=== PATIENT | female | born 1990 | race Two or more races ===

== ENCOUNTER 2016-06-14 04:19 | Emergency (ER) | payer MEDICAID ==
[~2016-06-14] VITALS: Ht 154.9 cm; Wt 61.2 kg
[2016-06-14] MEDS ORDERED: ONDANSETRON HCL 4 MG/2 ML VIAL IV ONE (04:45)
[2016-06-14] MEDS ORDERED: MORPHINE SULF INJ 2 MG/ML SYRINGE 1ML IV ONE (04:45)
[2016-06-14 05:07] LABS: Basophils # (auto) 0 uL; Basophils % (auto) 0.3 % (0.0-2.0); DEFINITIVE VIEW TRANSMISSION; Eosinophils # (auto) 0 uL; Eosinophils % (auto) 0.1 % (0.0-7.0); Hematocrit 38.2 % (36.0-46.0); Lymphocytes # (auto) 1.5 uL; Lymphocytes % (auto) 10.6 % (10.0-50.0); Mean Corpuscular Hemoglobin 24.9 pg (28.0-32.0); Mean Corpuscular Hgb Conc. 31.5 g/dL (32.0-36.0); Mean Corpuscular Volume 79.1 fL (80.0-100.0); Mean Platelet Volume 7.7 fL (7.4-10.4); Monocytes # (auto) 0.8 uL; Monocytes % (auto) 5.6 % (0.0-12.0); Neutrophils # (auto) 11.8 uL; Neutrophils % (auto) 83.4 % (37.0-80.0); Platelet Count (auto) 422 10^3/uL (140-450); White Blood Cell 14.1 10^3/uL (4.4-10.8)
[2016-06-14] MEDS ORDERED: SODIUM CHLORIDE 0.9% 1,000 ML IV ONE (05:15)
[2016-06-14] MEDS ORDERED: TETANUS-DIPTH-ACEL PERTUSSIS 0.5ML SYRG IM ONE (05:30)
[2016-06-14 05:35] LABS: Albumin 4.2 g/dL (3.4-5.0); BUN/Creatinine Ratio 13.6; Calcium 8.4 mg/dL (8.5-10.1); Potassium 3.8 mmol/L (3.5-5.1)
[2016-06-14 05:38] LABS: Bilirubin, Total 0.2 mg/dL (0.2-1.0); Total Protein 8.6 g/dL (6.4-8.2)
[2016-06-14 07:01] VITALS: BP 99/55
== END 2016-06-14 06:54 | disposition home or self-care (01) ==
LOC: ER 04:22
DX: S83.91XA Sprain of unspecified site of right knee, initial encounter (principal); S00.83XA Contusion of other part of head, initial encounter; S60.221A Contusion of right hand, initial encounter; S70.01XA Contusion of right hip, initial encounter; S70.211A Abrasion, right hip, initial encounter; S60.511A Abrasion of right hand, initial encounter; S80.211A Abrasion, right knee, initial encounter; Y04.0XXA Assault by unarmed brawl or fight, initial encounter; Y93.89 Activity, other specified; Y99.8 Other external cause status; Y92.89 Other specified places as the place of occurrence of the external cause
CPT/HCPCS: 36415; 70450; 70486; 72125; 73130; 73502; 73560; 73630; 74176; 80053; 80320; 84702; 85025; 90471; 90715; 96361; 96374; 96375; 99285; J2270; J2405; J7030

== ENCOUNTER → 2016-09-30 | Emergency (ER) | payer MEDICAID | END | disposition left against medical advice (07) | LOC: ER 03:41 | DX: R10.9 Unspecified abdominal pain (principal); Z53.21 Procedure and treatment not carried out due to patient leaving prior to being seen by health care provider ==

== ENCOUNTER 2024-06-19 23:02 | Emergency (ER) | payer MEDICAID ==
[~2024-06-19] VITALS: Ht 154.9 cm; Wt 73.1 kg
--- NOTE | 2024-06-20 00:56 | DVH ---
CT HEAD WITHOUT CONTRAST INDICATION: dizzy COMPARISON: None TECHNIQUE: CT of the head without intravenous contrast. RADIATION DOSE: CTDIvol: 52.6 mGy, DLP: 738.07 mGy*cm FINDINGS: There is no evidence of intracranial hemorrhage, infarct, extra-axial collection, mass effect, midli ne shift, herniation or hydrocephalus. The ventricles, sulci and cisterns are normal. The newberry-whit e differentiation is normal. Visualized paranasal sinuses and mastoid air cells are clear. Soft tiss ues and osseous structures are unremarkable. IMPRESSION: No abnormality demonstrated.
[2024-06-20 01:08] LABS: Chloride 105 mmol/L (98-107); Sodium 137 mmol/L (136-145)
[2024-06-20 01:09] LABS: Anion Gap 7 (5-15); Calcium 9.6 mg/dL (8.7-10.4); Carbon Dioxide 25 mmol/L (20-31)
[2024-06-20 01:14] LABS: BUN/Creatinine Ratio 19.7 (10.0-20.0); Blood Urea Nitrogen 12 mg/dL (9-23); Glucose 96 mg/dL (74-106)
[2024-06-20 01:16] LABS: Potassium 3.5 mmol/L (3.5-5.1)
--- NOTE | 2024-06-20 01:46 | ED.PDOC ---
History of Present Illness HPI Comments 34 y/o F with no significant past medical history brought in by family complaining of dizziness for the last 2-1/2 days, associated with a headache and nausea. Patient states the symptoms are worse when she changes position or moves her head. She states she had similar symptoms in the past that spontaneously resolved and she never sought medical attention. She denies any fever, vision changes, vomiting, focal weakness or syncope. Chief Complaint: Dizziness Time Seen by MD: 00:20 Primary Care Provider: JERAMIE Reviewed Notes: Nurses Notes, Medications, Allergies Allergies: Coded Allergies: NO KNOWN ALLERGIES (Unverified , 10/14/09) Information Source: Patient Mode of Arrival: Ambulatory Severity: Moderate Timing: Days Duration: Intermittent Prehospital treatment: None Past Medical History Past Medical History (Other): obesity Surgical History: Denies all surgeries IMMIGRATION INSPECTOR History: No Pertinent IMMIGRATION INSPECTOR History Family History Family History: Unknown Social History Smoker: Non-Smoker Alcohol: Occasionally Drugs: Denies Drug Use Lives In: Home All Other Systems: Reviewed and Negative (Comprehensive systems review obtained and negative except for what is stated in the HPI.) Physical Exam General Appearance: No Apparent Distress HEENT: PERRL/EOMI, Other (Moist mucous membranes. No facial asymmetry.) Neck: Full Range of Motion, Non-Tender, Normal Inspection, Supple Respiratory: Lungs Clear, No Accessory Muscle Use, No Respiratory Distress, Normal Breath Sounds Cardiovascular: No Edema, No JVD, Regular Rate/Rhythm Breast Exam: Deferred Gastrointestinal: Non Tender, Soft Genitalia: Deferred Pelvic: Deferred Rectal: Deferred Extremities: Normal inspection, Normal range of motion, Non-tender, No pedal edema Neurologic: Alert (Oriented x4), Normal Affect, Normal Mood, Other (Ambulatory without difficulty. No gross focal deficit. Head movement reproduces dizziness symptoms) Cerebellar Function: NOT DONE Reflexes: NOT DONE Skin: Dry, Normal Color, Warm Lymphatic: NOT DONE Was a procedure done? Was a procedure done?: No EKG EKG : Comments Sinus rhythm, rate 69, normal intervals, normal axis, normal QRS, no ST/T changes. Differential Dx Considerations may include: Positional vertigo, CVA, TIA, hypertensive encephalopathy, arrhythmia, CT, electrolyte imbalance, infection such as UTI, among others. X-Ray, Labs, Meds, VS Vital Signs Date Time Temp Pulse Resp B/P (MAP) Pulse Ox O2 Delivery O2 Flow Rate FiO2 06/20/24 02:42 97 19 100 Room Air* 0 21 06/20/24 02:41 97.9 98 19 139/79 (99) 97 97.9 06/20/24 01:45 69 06/19/24 23:58 69 06/19/24 23:42 98.1 80 18 166/103 (124) 99 Lab Test 06/20/24 01:30 06/20/24 00:33 06/19/24 23:48 06/19/24 23:47 Range/Units Troponin I High Sensitivity < 3 L < 3 L </=34 ng/L White Blood Count 9.1 4.4-10.8 10^3/uL Red Blood Count 4.86 4.0-5.20 10^6/uL Hemoglobin 14.1 12.2-16.2 g/dL Hematocrit 43.5 36.0-46.0 % Mean Corpuscular Volume 89.6 80.0-100.0 fL Mean Corpuscular Hemoglobin 29.1 28.0-32.0 pg Mean Corpuscular Hemoglobin Concent 32.4 32.0-36.0 g/dL Red Cell Distribution Width 13.0 11.8-14.3 % Platelet Count 393 140-450 10^3/uL Mean Platelet Volume 7.5 6.9-10.8 fL Neutrophils (%) (Auto) 54.1 37.0-80.0 % Lymphocytes (%) (Auto) 35.2 10.0-50.0 % Monocytes (%) (Auto) 8.1 0.0-12.0 % Eosinophils (%) (Auto) 2.4 0.0-7.0 % Basophils (%) (Auto) 0.2 0.0-2.0 % Neutrophils # (Auto) 4.9 1.6-8.6 10 ^3/uL Lymphocytes # (Auto) 3.2 0.4-5.4 10 ^3/uL Monocytes # (Auto) 0.7 0-1.3 10 ^3/uL Eosinophils # (Auto) 0.2 0-0.8 10 ^3/uL Basophils # (Auto) 0 0-0.2 10 ^3/uL Nucleated Red Blood Cells 0.1 % Sodium Level 137 136-145 mmol/L Potassium Level 3.5 3.5-5.1 mmol/L Chloride Level 105 98-107 mmol/L Carbon Dioxide Level 25 20-31 mmol/L Anion Gap 7 5-15 Blood Urea Nitrogen 12 9-23 mg/dL Creatinine 0.61 0.550-1.02 mg/dL Glomerular Filtration Rate Calc 119 >90 mL/min BUN/Creatinine Ratio 19.7 10.0-20.0 Serum Glucose 96 74-106 mg/dL Calcium Level 9.6 8.7-10.4 mg/dL Beta HCG, Quantitative 1.3 L 1.5-4.2 mIU/mL Urine Color Light-yellow Yellow Urine Clarity Clear Clear Urine pH 6.5 5.0-9.0 Urine Specific [place] 1.018 1.001-1.035 Urine Protein Negative Negative Urine Ketones Negative Negative Urine Blood 2+ H Negative /uL Urine Nitrite Negative Negative Urine Bilirubin Negative Negative Urine Urobilinogen Normal Negative mg/dL Urine Leukocyte Esterase Negative Negative /uL Urine RBC 2 0 - 4 /hpf Urine Microscopic WBC 2 0-5 /HPF Urine Squamous Epithelial Cells Few <5 /hpf Urine Bacteria None seen None Seen /hpf Urine Glucose Normal Normal mg/dL POC Glucose 102 70-106 mg/dl Current Medications Medications (Trade) Dose Ordered Sig/Wei Route Start Time Stop Time Status Last Admin Meclizine HCl (Antivert Tablet) 50 mg ONCE ONCE PO 06/20/24 00:30 06/20/24 00:31 DC 06/20/24 02:38 Ondansetron HCl (Zofran Po) 4 mg ONCE ONCE PO 06/20/24 00:30 06/20/24 00:31 DC 06/20/24 02:38 [place] [id number] Ph: [phone] DIAGNOSTIC IMAGING Diagnostic Imaging Report : [id number] Signed PATIENT: DARON GIBBONS ACCT: [id number] UNIT: [id number] : 1990 LOC: ER ROOM / BED: / AGE / SEX: 34 / F ADM STATUS: REG ER SERVICE 0022 ORDERING PHYSICIAN: RANDELL TEJADA MD PROCEDURE(s): HWOCT - HEAD WITHOUT CONTRAST REASON: dizzy ORDER NUMBER(s): [id number], ACCESSION NUMBER(s): [id number] CT HEAD WITHOUT CONTRAST INDICATION: dizzy COMPARISON: None TECHNIQUE: CT of the head without intravenous contrast. RADIATION DOSE: CTDIvol: 52.6 mGy, DLP: 738.07 mGy*cm FINDINGS: There is no evidence of intracranial hemorrhage, infarct, extra-axial collection, mass effect, midline shift, herniation or hydrocephalus. The ventricles, sulci and cisterns are normal. The newberry-white differentiation is normal. Visualized paranasal sinuses and mastoid air cells are clear. Soft tissues and osseous structures are unremarkable. IMPRESSION: No abnormality demonstrated. ATED BY: VIKRAM BATRES MD DICTATED DATE/TIME: 06/20/2452 SIGNED BY: VIKRAM BATRES MD SIGNED DATE/TIME: 06/20/2452 CC: X-Ray, Labs, Meds, VS Comment 34-year-old female with no significant past medical history complaining of dizziness and nausea Vitals remarkable for BP 166/103 Exam remarkable for reproducible dizziness with head movement Rhythm strip independently interpreted by me: Sinus rhythm, rate 69, no ectopy. CT head unremarkable CBC, metabolic panel, BNP, serial troponins, hCG and UA unremarkable for any abnormality of acute significance Patient treated with the following in the ED: Meclizine 50 mg p.o., Zofran ODT 4 mg p.o. On re-evaluation, symptoms have improved, vitals were stable, blood pressure has improved, and patient has no focal neurologic deficit on exam. Hospitalization was considered, however patient had rapid improvement of symptoms with treatment in the ED, and I no longer feel hospitalization is necessary. Patient now appears stable for discharge with close outpatient follow-up with her primary doctor. Rx meclizine, Zofran Time of 1ST Reevaluation: 00:50 Reevaluation 1ST: Unchanged Patient Education/Counseling: Diagnosis, Treatment Family Education/Counseling: No Family Present Departure 1 Departure Time of Disposition: 04:32 Impression: Primary Impression: Positional vertigo Disposition: 01 HOME / SELF CARE / HOMELESS Condition: Stable Additional Instructions: Your blood tests, including screening test for heart attack and heart failure were unremarkable. Your head CT was normal. I have prescribed medication for your symptoms. Follow-up with your primary doctor in 1-2 days. Return to ER for persistent or worsening symptoms. e-Prescriptions Ondansetron Odt 4MG Tab (ZOFRAN PO) 4 Mg Tb 4 MG PO TID PRN, #30 TAB prn nausea/vomiting ODT TAB-DISSOLVE IN MOUTH, THEN SWALLOW Prov: RANDELL TEJADA MD 06/20/24 Meclizine HCl (Meclizine 25) 25 Mg Tab 25 MG PO TID PRN, #30 TAB prn dizziness Prov: RANDELL TEJADA MD 06/20/24 Discharged With: Relative Critical Care Note Critical Care Time?: No Stability Stability form required: No Heart Score Heart Score: Heart Score Response (Comments) Value History N/A 0 EKG N/A 0 Age N/A 0 Risk Factors N/A 0 Troponin N/A 0 Total 0 I personally scribed for RANDELL TEJADA MD ([email or web address]) on 06/20/24 at 01:45. Electronically submitted by Jose Le ([email or web address]). RANDELL TEJADA MD Jun 20, 2024 01:45
[2024-06-20 01:57] LABS: Basophils # (auto) 0 10 ^3/uL (0-0.2); Basophils % (auto) 0.2 % (0.0-2.0); Eosinophils # (auto) 0.2 10 ^3/uL (0-0.8); Eosinophils % (auto) 2.4 % (0.0-7.0); Hematocrit 43.5 % (36.0-46.0); Hemoglobin 14.1 g/dL (12.2-16.2); Lymphocytes # (auto) 3.2 10 ^3/uL (0.4-5.4); Lymphocytes % (auto) 35.2 % (10.0-50.0); Mean Corpuscular Hemoglobin 29.1 pg (28.0-32.0); Mean Corpuscular Hgb Conc. 32.4 g/dL (32.0-36.0); Mean Corpuscular Volume 89.6 fL (80.0-100.0); Monocytes # (auto) 0.7 10 ^3/uL (0-1.3); Monocytes % (auto) 8.1 % (0.0-12.0); Neutrophils # (auto) 4.9 10 ^3/uL (1.6-8.6); Neutrophils % (auto) 54.1 % (37.0-80.0); Nucleated Red Blood Cells % 0.1 %; Platelet Count (auto) 393 10^3/uL (140-450); Red Blood Cells 4.86 10^6/uL (4.0-5.20); White Blood Cell 9.1 10^3/uL (4.4-10.8)
[2024-06-20 02:16] LABS: Urine Bacteria None Seen /hpf (None Seen)
[2024-06-20] MEDS: ONDANSETRON ODT 4 MG TAB PO ONE (02:38)
[2024-06-20] MEDS: MECLIZINE HCL 25 MG TAB PO ONE (02:38)
[2024-06-20 02:41] VITALS: BP 139/79; TEMP 97.9
[2024-06-20 02:42] VITALS: PULSE 97; RESP 19; O2SAT 100
[2024-06-20 02:47] LABS: Urine Blood 2+ /uL (Negative); Urine Clarity Clear (Clear); Urine Color Light-Yellow (Yellow); Urine Protein, UAD Negative (Negative); Urine Specific Gravity 1.018 (1.001-1.035); Urine Squamous Epithelial Cell FEW /hpf (<5); Urine Urobilinogen Normal (Negative); Urine WBC 2 /HPF (0-5); Urine pH 6.5 (5.0-9.0)
[2024-06-20] MEDS ORDERED: MECL1TAB42 PO (04:38)
[2024-06-20] MEDS ORDERED: ZOFR4T PO (04:38)
--- NOTE | 2024-06-21 09:55 | ECG ---
[facility] Test Date: 2024-06-19 Test Time: 23:58:26 Pat Name: DARON GIBBONS Department: ED Room: Gender: F Director [employer]: : 1990 Requested By: RANDELL RUTLEDGE Order Number: [id number] Reading MD: Carlos Walker Measurements Intervals [place] Rate: 69 P: 2 HI: 165 QRS: 82 QRSD: 101 T: 22 QT: 406 QTc: 435 Interpretive Statements Sinus rhythm Electronically Signed On 06-21-2024 22:13:15 PST by Carlos Walker Please click the below link to view image of tracing.
== END 2024-06-20 05:21 | disposition home or self-care (01) ==
LOC: ER 23:02
DX: H81.10 Benign paroxysmal vertigo, unspecified ear (principal); R11.0 Nausea
CPT/HCPCS: 36415; 70450; 80048; 81001; 82962; 84484; 84702; 85025; 93005; 99284; J8597; Q0162